=== PATIENT | male | born 1950 | race Two or more races ===

== ENCOUNTER 2022-09-17 18:18 | Emergency (ER) | payer MEDICARE, OTHER ==
[~2022-09-17] VITALS: Ht 182.9 cm; Wt 100.0 kg
[2022-09-17 18:24] VITALS: BP 139/74
== END 2022-09-17 18:55 | disposition left against medical advice (07) ==
LOC: EDBD 18:18 → ER 18:22
DX: R07.89 Other chest pain (principal); Z53.21 Procedure and treatment not carried out due to patient leaving prior to being seen by health care provider
CPT/HCPCS: 93005

== ENCOUNTER 2024-05-22 04:12 | Inpatient (IN) | payer MEDICARE, OTHER ==
[2024-05-22] VITALS (7 sets, daily range): BP systolic 110–135; BP diastolic 17–87; PULSE 97–131; RESP 28–44; TEMP 98.1; O2SAT 91–98
[~2024-05-22] VITALS: Ht 175.3 cm; Wt 94.8 kg
[2024-05-22 05:04] LABS: Basophils # (auto) 0 10 ^3/uL (0-0.2); Basophils % (auto) 0.4 % (0.0-2.0); Eosinophils # (auto) 0 10 ^3/uL (0-0.8); Eosinophils % (auto) 0.1 % (0.0-7.0); Hematocrit 48.3 % (41.0-53.0); Hemoglobin 16.7 g/dL (13.5-17.5); Lymphocytes # (auto) 1.3 10 ^3/uL (0.4-5.4); Lymphocytes % (auto) 12.6 % (10.0-50.0); Mean Corpuscular Hemoglobin 33.2 pg (28.0-32.0); Mean Corpuscular Hgb Conc. 34.6 g/dL (32.0-36.0); Mean Corpuscular Volume 96.1 fL (80.0-100.0); Monocytes % (auto) 9.3 % (0.0-12.0); Neutrophils % (auto) 77.6 % (37.0-80.0); Nucleated Red Blood Cells % 0.1 %; Platelet Count (auto) 307 10^3/uL (140-450); Red Blood Cells 5.03 10^6/uL (4.5-5.90); Red Cell Distribution Width 14.4 % (11.8-14.3); White Blood Cell 10.3 10^3/uL (4.4-10.8)
[2024-05-22 05:09] LABS: Chloride 109 mmol/L (98-107); Potassium 4.3 mmol/L (3.5-5.1); Sodium 141 mmol/L (136-145)
[2024-05-22 05:10] LABS: Anion Gap 15 (5-15); Carbon Dioxide 17 mmol/L (20-31)
[2024-05-22 05:11] LABS: Calcium 9.2 mg/dL (8.7-10.4)
[2024-05-22 05:15] LABS: BUN/Creatinine Ratio 15.5 (10.0-20.0); Blood Urea Nitrogen 22 mg/dL (9-23); Glucose 195 mg/dL (74-106)
[2024-05-22] MEDS: FUROSEMIDE 40 MG/4 ML VIAL IV ONE (05:35)
[2024-05-22 05:39] LABS: Lactic Acid w/Reflex 4.6 mmol/L (0.4-2.0)
[2024-05-22 06:37] LABS: Base Excess -6.8 mmol/L (-2.0-3.0)
[2024-05-22] MEDS ORDERED: ACETAMINOPHEN 325 MG TAB PO PRN (07:15)
[2024-05-22] MEDS ORDERED: ONDANSETRON HCL 4 MG/2 ML VIAL IV PRN (07:15)
[2024-05-22] MEDS ORDERED: NITROGLYCERIN 0.4 MG SL TAB SL PRN (07:45)
[2024-05-22] MEDS ORDERED: MORPHINE SULFATE INJ 2 MG/ml SYRG IV PRN (07:45)
[2024-05-22] MEDS: LORazepam 2MG/ML-1ML VIAL IV ONE (07:55)
[2024-05-22] MEDS: ASPirin 81 mg TAB PO ONE (08:06)
[2024-05-22] MEDS: FAMOTIDINE (10MG/ML) 2ML VL IV SCH (10:47)
[2024-05-22] MEDS: CARVEDILOL 3.125 MG TAB PO SCH (10:48)
[2024-05-22 11:27] LABS: Basophils # (auto) 0 10 ^3/uL (0-0.2); Basophils % (auto) 0.4 % (0.0-2.0); Eosinophils # (auto) 0 10 ^3/uL (0-0.8); Hematocrit 52.6 % (41.0-53.0); Hemoglobin 17.6 g/dL (13.5-17.5); Lymphocytes # (auto) 1.2 10 ^3/uL (0.4-5.4); Mean Corpuscular Hemoglobin 32.3 pg (28.0-32.0); Mean Corpuscular Hgb Conc. 33.4 g/dL (32.0-36.0); Mean Corpuscular Volume 96.9 fL (80.0-100.0); Monocytes # (auto) 1.2 10 ^3/uL (0-1.3); Monocytes % (auto) 11.4 % (0.0-12.0); Neutrophils # (auto) 7.8 10 ^3/uL (1.6-8.6); Neutrophils % (auto) 76.2 % (37.0-80.0); Nucleated Red Blood Cells % 0.2 %; Platelet Count (auto) 283 10^3/uL (140-450); Red Blood Cells 5.43 10^6/uL (4.5-5.90); Red Cell Distribution Width 14.6 % (11.8-14.3); White Blood Cell 10.3 10^3/uL (4.4-10.8)
[2024-05-22 11:35] LABS: Alanine Aminotransferase 185 U/L (7-40); Alkaline Phosphatase 66 U/L (46-116); Anion Gap 17 (5-15); Aspartate Aminotransferase 161 U/L (13-40); BUN/Creatinine Ratio 14.3 (10.0-20.0); Blood Urea Nitrogen 24 mg/dL (9-23); Carbon Dioxide 17 mmol/L (20-31); Chloride 109 mmol/L (98-107); Glucose 129 mg/dL (74-106); LDL Cholesterol 86 mg/dL (< 100); Magnesium 2.2 mg/dL (1.6-2.6); Potassium 4.5 mmol/L (3.5-5.1); Sodium 143 mmol/L (136-145); Triglycerides 110 mg/dL (< 150)
[2024-05-22] MEDS: SPIRONOLACTONE 25 MG TAB PO ONE (11:35)
[2024-05-22] MEDS: PANTOPRAZOLE 40 MG TAB PO ONE (11:35)
[2024-05-22 11:36] LABS: Albumin 4.4 g/dL (3.2-4.8); Bilirubin, Total 1.7 mg/dL (0.2-1.0); Cholesterol 118 mg/dL (< 200); HDL Cholesterol 27 mg/dL (40-59); Total Protein 7.7 g/dL (5.7-8.2)
[2024-05-22 11:38] LABS: INR 1.44 (0.9-1.15); Partial Thromboplastin Time 22.4 SEC (24.5-34.5); Prothrombin Time 14.9 sec (9.3-11.8)
[2024-05-22 12:01] LABS: Lactic Acid w/Reflex 6.9 mmol/L (0.4-2.0)
[2024-05-22] MEDS: cefTRIAXone 1GM/50ML D5W 50 ML IV ONE (13:07)
[2024-05-22] MEDS: SODIUM CHLOR 0.9% PF (SALINE LOCK) 10ML VIAL/SYR IV SCH (14:09)
[2024-05-22 15:50] LABS: Urine Bacteria None Seen /hpf (None Seen)
[2024-05-22] MEDS ORDERED: VANCOMYCIN PER PHARMACY 0 MG IV SCH (16:00)
[2024-05-22 17:08] LABS: Urine Blood Negative /uL (Negative); Urine Clarity Clear (Clear); Urine Color Light-Yellow (Yellow); Urine Hyaline Cast MOD /lpf (0 - 2); Urine Mucus FEW (None Seen); Urine Protein, UAD TRACE (Negative); Urine Urobilinogen Normal (Negative); Urine WBC 5 /hpf (0 - 3)
[2024-05-22] MEDS: VANCOMYCIN 1.5GM/300ML 300 ML IV ONE (17:11)
[2024-05-22 17:23] LABS: Amphetamine Screen, Urine Neg (NEGATIVE); Barbiturate Scree,Urine Neg (NEGATIVE); Benzodiazephine Screen, Urine Neg (NEGATIVE)
[2024-05-22 17:23] LABS: Lactic Acid w/Reflex 2.9 mmol/L (0.4-2.0)
[2024-05-22 17:24] LABS: Cannabinoid Screen, Urine Neg (NEGATIVE); Cocaine Screen, Urine Neg (NEGATIVE); Opiate Scree,Urine Neg (NEGATIVE); Phencyclidine Screen, Urine Neg (NEGATIVE)
[2024-05-22] MEDS: methIMAzole 5 MG TAB PO ONE (17:24)
[2024-05-22] MEDS: FUROSEMIDE 40 MG/4 ML VIAL IV SCH (18:12)
[2024-05-22] MEDS: diphenhdrAMINE HCL 50 MG/1 ML VL IV ONE (18:56)
[2024-05-22] MEDS: HALOPERIDOL LACTATE 5 MG/ML INJ VIAL IM ONE ×2 (18:56→21:01)
[2024-05-22 20:25] LABS: Base Excess -6.9 mmol/L (-2.0-3.0)
[2024-05-22] MEDS: diphenhdrAMINE HCL 50 MG/1 ML VL IM ONE (21:01)
[2024-05-22] MEDS: APIXABAN 5 MG TAB PO SCH (21:46)
[2024-05-22] MEDS: SACUBITRIL-VALSARTAN 24mg/26mg TAB PO SCH (22:37)
[2024-05-23] VITALS (21 sets, daily range): BP systolic 55–121; BP diastolic 29–98; PULSE 71–96; RESP 11–40; TEMP 97.5–97.9; O2SAT 92–97
[2024-05-23] MEDS: PANTOPRAZOLE 40 MG TAB PO SCH (06:52)
[2024-05-23 07:36] LABS: Basophils # (auto) 0.1 10 ^3/uL (0-0.2); Basophils % (auto) 0.7 % (0.0-2.0); Eosinophils # (auto) 0 10 ^3/uL (0-0.8); Eosinophils % (auto) 0.1 % (0.0-7.0); Hematocrit 45.8 % (41.0-53.0); Hemoglobin 15.3 g/dL (13.5-17.5); Lymphocytes % (auto) 25.6 % (10.0-50.0); Mean Corpuscular Hemoglobin 32.1 pg (28.0-32.0); Mean Corpuscular Hgb Conc. 33.3 g/dL (32.0-36.0); Mean Corpuscular Volume 96.4 fL (80.0-100.0); Monocytes % (auto) 13.2 % (0.0-12.0); Neutrophils # (auto) 4.6 10 ^3/uL (1.6-8.6); Neutrophils % (auto) 60.4 % (37.0-80.0); Nucleated Red Blood Cells % 0.1 %; Platelet Count (auto) 218 10^3/uL (140-450); Red Blood Cells 4.76 10^6/uL (4.5-5.90); Red Cell Distribution Width 14.7 % (11.8-14.3); White Blood Cell 7.7 10^3/uL (4.4-10.8)
[2024-05-23 08:06] LABS: Alanine Aminotransferase 228 U/L (7-40); Albumin 3.6 g/dL (3.2-4.8); Alkaline Phosphatase 52 U/L (46-116); Anion Gap 9 (5-15); Aspartate Aminotransferase 199 U/L (13-40); BUN/Creatinine Ratio 19.5 (10.0-20.0); Blood Urea Nitrogen 29 mg/dL (9-23); Calcium 9.3 mg/dL (8.7-10.4); Carbon Dioxide 26 mmol/L (20-31); Chloride 107 mmol/L (98-107); Glucose 77 mg/dL (74-106); Potassium 3.6 mmol/L (3.5-5.1); Sodium 142 mmol/L (136-145)
[2024-05-23 08:07] LABS: Bilirubin, Total 1.6 mg/dL (0.2-1.0); Total Protein 6.1 g/dL (5.7-8.2)
[2024-05-23] MEDS: cefTRIAXone 1GM/50ML D5W 50 ML IV SCH (09:18)
[2024-05-23] MEDS ORDERED: FUROSEMIDE 40 MG/4 ML VIAL IV SCH (10:00)
[2024-05-23] MEDS: HYDROcodone-ACET 5/325MG TAB PO PRN (11:28)
[2024-05-23] MEDS: ASPirin 81 mg TAB PO SCH (11:29)
[2024-05-23] MEDS: SPIRONOLACTONE 25 MG TAB PO SCH (11:30)
[2024-05-23] MEDS: EMPAGLIFLOZIN 10 MG TAB PO SCH (11:30)
[2024-05-23] MEDS: VANCOMYCIN 1GM/200ML PREMIX 200 ML IV SCH (11:31)
[2024-05-23] MEDS: methIMAzole 5 MG TAB PO ONE (13:37)
[2024-05-23] MEDS: SODIUM CHLORIDE 0.9% 500 ML IV ONE (16:15)
[2024-05-23] MEDS ORDERED: METO-289 PO (16:55)
[2024-05-23 17:53] LABS: Lactic Acid w/Reflex 2.2 mmol/L (0.4-2.0)
[2024-05-23] MEDS: NOREPINEPHRINE 8 MG/250ML KIT 250 ML IV SCH (20:30)
[2024-05-23] MEDS ORDERED: SACUBITRIL-VALSARTAN 24mg/26mg TAB PO SCH (22:00)
[2024-05-23] MEDS ORDERED: CARVEDILOL 3.125 MG TAB PO SCH (22:00)
[2024-05-23 22:35] LABS: Potassium 4.2 mmol/L (3.5-5.1)
[2024-05-23 22:42] LABS: Magnesium 2.2 mg/dL (1.6-2.6)
[2024-05-23] MEDS: FUROSEMIDE INJECTION 10 ML ONE (22:55)
[2024-05-23] MEDS: FUROSEMIDE INJECTION 100 MG in SODIUM CHL 0.9% 100 ML IV SCH (22:56)
[2024-05-24] VITALS (97 sets, daily range): BP systolic 82–122; BP diastolic 35–81; PULSE 74–111; RESP 13–41; TEMP 97.8–98.6; O2SAT 85–98
[2024-05-24] MEDS: ACETAMINOPHEN 325 MG TAB PO PRN (01:24)
[2024-05-24 04:11] LABS: Basophils # (auto) 0 10 ^3/uL (0-0.2); Basophils % (auto) 0.4 % (0.0-2.0); Eosinophils # (auto) 0.1 10 ^3/uL (0-0.8); Eosinophils % (auto) 0.7 % (0.0-7.0); Hematocrit 48.3 % (41.0-53.0); Hemoglobin 15.9 g/dL (13.5-17.5); Lymphocytes % (auto) 10.9 % (10.0-50.0); Mean Corpuscular Hemoglobin 31.9 pg (28.0-32.0); Mean Corpuscular Volume 96.8 fL (80.0-100.0); Monocytes % (auto) 11.1 % (0.0-12.0); Neutrophils # (auto) 7.2 10 ^3/uL (1.6-8.6); Neutrophils % (auto) 76.9 % (37.0-80.0); Nucleated Red Blood Cells % 0.1 %; Platelet Count (auto) 256 10^3/uL (140-450); Red Blood Cells 4.99 10^6/uL (4.5-5.90); Red Cell Distribution Width 14.4 % (11.8-14.3); White Blood Cell 9.4 10^3/uL (4.4-10.8)
[2024-05-24 04:27] LABS: Alanine Aminotransferase 316 U/L (7-40); Alkaline Phosphatase 58 U/L (46-116); BUN/Creatinine Ratio 17.5 (10.0-20.0); Blood Urea Nitrogen 21 mg/dL (9-23); Chloride 103 mmol/L (98-107); Glucose 115 mg/dL (74-106)
[2024-05-24 04:28] LABS: Albumin 3.7 g/dL (3.2-4.8); Aspartate Aminotransferase 269 U/L (13-40); Total Protein 6.4 g/dL (5.7-8.2)
[2024-05-24 04:29] LABS: Anion Gap 11 (5-15); Calcium 9.3 mg/dL (8.7-10.4); Carbon Dioxide 22 mmol/L (20-31)
[2024-05-24 04:45] LABS: Sodium 136 mmol/L (136-145)
[2024-05-24] MEDS: methIMAzole 5 MG TAB PO SCH (08:39)
[2024-05-24] MEDS ORDERED: FUROSEMIDE 40 MG/4 ML VIAL IV SCH (10:00)
[2024-05-24 22:23] LABS: Chloride 105 mmol/L (98-107); Potassium 3.5 mmol/L (3.5-5.1); Sodium 139 mmol/L (136-145)
[2024-05-24 22:24] LABS: Anion Gap 5 (5-15); Calcium 9.2 mg/dL (8.7-10.4); Carbon Dioxide 29 mmol/L (20-31)
[2024-05-24 22:29] LABS: BUN/Creatinine Ratio 19.4 (10.0-20.0); Blood Urea Nitrogen 19 mg/dL (9-23); Glucose 108 mg/dL (74-106)
[2024-05-24 22:30] LABS: Magnesium 1.9 mg/dL (1.6-2.6)
[2024-05-24] MEDS: MAGNESIUM SULFATE 1GM/100ML 100 ML IV ONE (23:18)
[2024-05-25] VITALS (56 sets, daily range): BP systolic 99–144; BP diastolic 49–93; PULSE 80–110; RESP 16–39; TEMP 97.4–97.7; O2SAT 81–98
[2024-05-25 03:41] LABS: Basophils # (auto) 0.1 10 ^3/uL (0-0.2); Basophils % (auto) 0.7 % (0.0-2.0); Eosinophils # (auto) 0.1 10 ^3/uL (0-0.8); Eosinophils % (auto) 0.8 % (0.0-7.0); Hematocrit 45.3 % (41.0-53.0); Hemoglobin 15.5 g/dL (13.5-17.5); Lymphocytes # (auto) 1.3 10 ^3/uL (0.4-5.4); Lymphocytes % (auto) 15.1 % (10.0-50.0); Mean Corpuscular Hemoglobin 32.7 pg (28.0-32.0); Mean Corpuscular Hgb Conc. 34.2 g/dL (32.0-36.0); Mean Corpuscular Volume 95.4 fL (80.0-100.0); Monocytes # (auto) 1.1 10 ^3/uL (0-1.3); Monocytes % (auto) 13.2 % (0.0-12.0); Neutrophils % (auto) 70.2 % (37.0-80.0); Nucleated Red Blood Cells % 0.2 %; Platelet Count (auto) 236 10^3/uL (140-450); Red Blood Cells 4.75 10^6/uL (4.5-5.90); Red Cell Distribution Width 14.5 % (11.8-14.3); White Blood Cell 8.6 10^3/uL (4.4-10.8)
[2024-05-25 04:40] LABS: Alanine Aminotransferase 300 U/L (7-40); Albumin 3.6 g/dL (3.2-4.8); Alkaline Phosphatase 54 U/L (46-116); Anion Gap 8 (5-15); Aspartate Aminotransferase 189 U/L (13-40); BUN/Creatinine Ratio 14.4 (10.0-20.0); Blood Urea Nitrogen 14 mg/dL (9-23); Carbon Dioxide 26 mmol/L (20-31); Chloride 104 mmol/L (98-107); Glucose 100 mg/dL (74-106); Potassium 3.6 mmol/L (3.5-5.1); Sodium 138 mmol/L (136-145)
[2024-05-25 04:41] LABS: Bilirubin, Total 1.1 mg/dL (0.2-1.0); Total Protein 6.3 g/dL (5.7-8.2)
[2024-05-25] MEDS: MAGNESIUM SULFATE 1GM/100ML 100 ML IV ONE ×2 (09:13→10:00)
[2024-05-25] MEDS: POTASSIUM CHL 20MEQ/100ML 100 ML IV ONE (09:14)
[2024-05-25] MEDS ORDERED: POTASSIUM CHL 20MEQ/100ML 100 ML IV SCH (10:00)
[2024-05-25 11:12] LABS: INR 1.29 (0.9-1.15); Prothrombin Time 13.4 sec (9.3-11.8)
[2024-05-25] MEDS: AMIODARONE HCL 200 MG TAB PO SCH (12:50)
[2024-05-25] MEDS: POTASSIUM EFFERVESENT TAB 25 MEQ GT ONE (12:55)
[2024-05-25] MEDS: FUROSEMIDE 40 MG/4 ML VIAL IV SCH (12:55)
[2024-05-25] MEDS: ENOXAPARIN SOD 100 MG/1 ML SYRINGE SC SCH (12:55)
[2024-05-25] MEDS: METOPROLOL TARTRATE 25 MG TAB PO SCH (21:01)
[2024-05-25] MEDS: traZODone HCL 50 MG TAB PO ONE (23:39)
[2024-05-26] VITALS (22 sets, daily range): BP systolic 66–181; BP diastolic 41–112; PULSE 80–116; RESP 14–40; TEMP 96.9–98; O2SAT 93–99
[2024-05-26 05:06] LABS: Basophils # (auto) 0 10 ^3/uL (0-0.2); Basophils % (auto) 0.4 % (0.0-2.0); Eosinophils # (auto) 0 10 ^3/uL (0-0.8); Hematocrit 47.8 % (41.0-53.0); Hemoglobin 15.9 g/dL (13.5-17.5); Lymphocytes # (auto) 0.7 10 ^3/uL (0.4-5.4); Lymphocytes % (auto) 8.5 % (10.0-50.0); Mean Corpuscular Hemoglobin 31.7 pg (28.0-32.0); Mean Corpuscular Hgb Conc. 33.2 g/dL (32.0-36.0); Mean Corpuscular Volume 95.7 fL (80.0-100.0); Monocytes # (auto) 1.1 10 ^3/uL (0-1.3); Monocytes % (auto) 12.5 % (0.0-12.0); Neutrophils # (auto) 6.8 10 ^3/uL (1.6-8.6); Neutrophils % (auto) 78.6 % (37.0-80.0); Nucleated Red Blood Cells % 0.1 %; Platelet Count (auto) 252 10^3/uL (140-450); Red Cell Distribution Width 14.4 % (11.8-14.3); White Blood Cell 8.6 10^3/uL (4.4-10.8)
[2024-05-26 05:22] LABS: Alanine Aminotransferase 244 U/L (7-40); Albumin 3.8 g/dL (3.2-4.8); Alkaline Phosphatase 59 U/L (46-116); Anion Gap 10 (5-15); Aspartate Aminotransferase 95 U/L (13-40); BUN/Creatinine Ratio 19.8 (10.0-20.0); Blood Urea Nitrogen 21 mg/dL (9-23); Calcium 9.9 mg/dL (8.7-10.4); Carbon Dioxide 26 mmol/L (20-31); Chloride 102 mmol/L (98-107); Glucose 124 mg/dL (74-106); Magnesium 2.2 mg/dL (1.6-2.6); Potassium 3.8 mmol/L (3.5-5.1); Sodium 138 mmol/L (136-145)
[2024-05-26 05:23] LABS: Bilirubin, Total 1.2 mg/dL (0.2-1.0); Total Protein 6.6 g/dL (5.7-8.2)
[2024-05-26] MEDS: DOCUSATE SOD 100 MG CAP PO PRN (05:56)
[2024-05-26] MEDS ORDERED: FUROSEMIDE 40 MG/4 ML VIAL IV SCH (07:58)
[2024-05-26] MEDS: FUROSEMIDE 40 MG/4 ML VIAL IV SCH ×2 (09:32→18:00)
[2024-05-26] MEDS: POTASSIUM EFFERVESENT TAB 25 MEQ PO ONE (09:57)
[2024-05-26] MEDS ORDERED: SPIR25TA8 PO (11:06)
[2024-05-26] MEDS ORDERED: METO25TA5 PO (11:08)
[2024-05-26] MEDS ORDERED: PANT1INJ3 PO (11:10)
[2024-05-26] MEDS ORDERED: PANT40TA2 PO (11:12)
[2024-05-26] MEDS ORDERED: APIX5TAB PO (11:13)
[2024-05-26] MEDS ORDERED: AMIO200T33 PO (11:14)
[2024-05-26] MEDS ORDERED: EMPA1TAB PO (11:15)
[2024-05-26] MEDS ORDERED: FURO1TAB33 PO (11:16)
[2024-05-26] MEDS: METOPROLOL SUCCINATE XL 50 MG TAB PO SCH ×2 (11:32→12:45)
[2024-05-26] MEDS: EMPAGLIFLOZIN 10 MG TAB PO SCH (11:33)
[2024-05-26] MEDS ORDERED: DOCU-94 PO (13:36)
[2024-05-26] MEDS ORDERED: CARV-216 PO (13:40)
[2024-05-26] MEDS ORDERED: FINA5TAB4 PO (13:41)
[2024-05-26] MEDS ORDERED: SACU1TAB PO (13:45)
[2024-05-26] MEDS ORDERED: ZOLP10TA6 PO (13:47)
[2024-05-26] MEDS ORDERED: HYDR-4798 PO (13:58)
[2024-05-26] MEDS ORDERED: POTASSIUM CHL 20 Meq TABLET PO ONE (14:00)
[2024-05-26] MEDS ORDERED: METH-552 PO (14:39)
[2024-05-26] MEDS ORDERED: FURO1TAB31 PO (14:41)
[2024-05-26] MEDS ORDERED: POTA-36 PO (15:01)
[2024-05-26] MEDS ORDERED: EMPA1TAB3 PO (15:05)
[2024-05-26] MEDS: FUROSEMIDE 40 MG/4 ML VIAL IV ONE (18:17)
[2024-05-26] MEDS ORDERED: traZODone HCL 50 MG TAB PO SCH (22:00)
== END 2024-05-26 19:54 | disposition hospice, home (50) | DRG 871 ==
LOC: EDBD 04:12 → ER 04:12 → TELE 07:39 → TELE-EAST 05-23 15:17 → ICU WEST 05-23 19:00 → DOU IN ICU 05-25 23:00
PROVIDERS: ADMIT Internal Medicine; ATTEND Internal Medicine
PROC: 5A09357 Assistance with Respiratory Ventilation, Less than 24 Consecutive Hours, Continuous Positive Airway Pressure (ICD-10-PCS; principal; 2024-05-22)
PROC: 05HB33Z Insertion of Infusion Device into Right Basilic Vein, Percutaneous Approach (ICD-10-PCS; 2024-05-25)
PROC: B54MZZA Ultrasonography of Right Upper Extremity Veins, Guidance (ICD-10-PCS; 2024-05-25)
DX: A41.9 Sepsis, unspecified organism (principal); G92.8 Other toxic encephalopathy; N17.0 Acute kidney failure with tubular necrosis; I21.A1 Myocardial infarction type 2; R57.0 Cardiogenic shock; I50.43 Acute on chronic combined systolic (congestive) and diastolic (congestive) heart failure; J96.21 Acute and chronic respiratory failure with hypoxia; E87.20 Acidosis, unspecified; I42.8 Other cardiomyopathies; I47.10 Supraventricular tachycardia, unspecified; I13.0 Hypertensive heart and chronic kidney disease with heart failure and stage 1 through stage 4 chronic kidney disease, or unspecified chronic kidney disease; N20.0 Calculus of kidney; N18.9 Chronic kidney disease, unspecified; F41.9 Anxiety disorder, unspecified; I27.20 Pulmonary hypertension, unspecified; R73.9 Hyperglycemia, unspecified; E05.90 Thyrotoxicosis, unspecified without thyrotoxic crisis or storm; E66.9 Obesity, unspecified; N28.1 Cyst of kidney, acquired; Z95.810 Presence of automatic (implantable) cardiac defibrillator; Z79.01 Long term (current) use of anticoagulants; Z68.30 Body mass index [BMI] 30.0-30.9, adult
CPT/HCPCS: 36415; 36600; 70450; 71045; 74176; 76536; 80048; 80053; 80061; 80202; 80307; 81001; 82306; 82607; 82805; 83036; 83605; 83735; 83880; 83970; 84100; 84132; 84439; 84443; 84481; 84484; 85025; 85610; 85730; 87040; 87081; 87086; 93005; 93306; 94660; 97163; 99291; G0378; J3480; J3490